=== PATIENT | male | born 1990 | race Hispanic/Latino ===

== ENCOUNTER 2017-10-31 12:29 | Emergency (ER) | payer OTHER ==
--- NOTE | 2017-10-31 13:07 | Emergency Department Report ---
ED Rash HPI - HPI Chief Complaint: Skin Rash Stated Complaint: RASH Time Seen by Provider: 10/31/17 13:06 Duration: 1 week Location: Chest, Upper Extremities, Other (face) Suspected Cause: Plant Rash Symptoms: Yes Itching (generalized), Yes Blistering (red rash ), No Facial Swelling, No Tongue/Oral Swelling, No Breathing Difficulties, No Choking Sensation, No Wheezing/Dyspnea, No Peeling, No Fever, No Lightheaded, No Malaise , No Myalgias Severity: moderate Other History: Patient reports that he has been doing yard work and has developed a rash in his arms face and abdomen, chest vessel to worsen over the last 3 days. He said first started on his right upper arm and now it is spreading. He states that he is using calamine lotion but it is not helping. Denies any respiratory involvement. Itching is 8 out of 10. Denies any pain. Immunizations up-to-date. Nothing makes itching better and nothing makes it worse ED Review of Systems ROS: Stated complaint: RASH Other details as noted in HPI Constitutional: denies: chills, fever Eyes: denies: eye pain, eye discharge, vision change ENT: denies: ear pain, throat pain, congestion Respiratory: denies: cough, shortness of breath, SOB with exertion, SOB at rest , stridor, wheezing Cardiovascular: denies: chest pain, palpitations, edema, syncope Gastrointestinal: denies: abdominal pain, nausea, vomiting, diarrhea Genitourinary: denies: urgency, dysuria Musculoskeletal: denies: back pain, joint swelling, arthralgia, myalgia Skin: pruritus. denies: rash Neurological: denies: headache ED Past Medical Hx - Past Medical History Previous Medical History?: Yes Hx Psychiatric Treatment: Yes (bipolar, schizophrenia, dperession, anxiety) - Surgical History Past Surgical History?: Yes Additional Surgical History: t&a - Family History Family history: hypertension - Social History Smoking Status: Current Every Day Smoker Substance Use Type: Alcohol, Prescribed - Medications Home Medications: Home Medications Medication Instructions Recorded Confirmed Last Taken Type Prednisone [predniSONE 10 mg 10 mg PO .TAPER 6 Days #1 tab.ds.pk 10/31/17 Unknown Rx (6-Day Pack, 21 Tabs)] hydrOXYzine HCL [Atarax] 25 mg PO Q6HR PRN #12 tablet 10/31/17 Unknown Rx Rash Exam - Exam General: Vital signs noted. No distress. Alert and acting appropriately. This is a 27-year-old male well-nourished well-developed in no acute distress HEENT: No Periorbital Edema, No Conjuctival Injection, No Chemosis, No Perioral Edema, No Tongue Edema, No Uvular Edema, No Compromised Airway, No Drooling Lungs: Yes Good Air Exchange, No Wheezes, No Ronchi, No Stridor, No Cough, No Labored Respirations, No Retractions, No Use of Accessory Muscles, No Other Abnormal Lung Sounds Heart: Yes Regular (S1, S2. Regular rate and rhythm), No Murmur Front/Back of Body, Lg (Color): 1 - Excoriated, vesicular, blisters, raised, erythema areas noted to the forearm and arm. 2 - Excoriated areas to forearm and arm, red, erythema, raised scattered sparsely to left arm and forearm 3 - Areas sparsely scattered to chest. 4 - areas scattered to upper back with erythema, excoriated, raised Skin: Yes Excoriations (bilateral upper extremity, anterior chest and upper back ), Yes Weeping, Yes Erythema ( bilateral upper extremity, anterior chest, upper back), Yes Other (erythema, raised area, crusting, scaly and with some blistering and weeping to upper extremities, sparsely scattered to back, chest bilaterally), No Tenderness, No Edema, No Encrustations Other: Positive: Abdomen Normal (nontender to palpate in all quadrants and normal bowel sounds), Neurologic Normal (alert and oriented 3, normal gait), Musculoskeletal Normal (no clubbing, cyanosis or edema. Positive pulses all extremities) ED Course Vital Signs 10/31/17 12:37 Temperature 98.8 F Pulse Rate 69 Respiratory 20 Rate Blood Pressure 127/76 O2 Sat by Pulse 99 Oximetry - Reevaluation(s) Reevaluation #1: 10/31/17 14:37 She given Benadryl 50 mg IM and Solu-Medrol 125 mg IV which relieved itching. ED Medical Decision Making - Medical Decision Making ED course: Diagnosis 1: Contact dermatitis probably from poison sqiohy-Bwds-Iaevma 125 mg IM and Benadryl 50 mg IM for relief of itching. To: Pruritus Will discharge home with steroids and Atarax Patient educated on poison plan., Medication, follow-up plans. Referral to supervisor loading The signs are stable and afebrile Condition discharged home with prescription for Atarax and prednisone Dosepak Critical care attestation.: If time is entered above; I have spent that time in minutes in the direct care of this critically ill patient, excluding procedure time. ED Disposition Clinical Impression: Pruritic disorder Contact dermatitis Qualifiers: Contact dermatitis type: unspecified Contact dermatitis trigger: non-food plants Qualified Code(s): L25.5 - Unspecified contact dermatitis due to plants, except food Disposition: DC-01 TO HOME OR SELFCARE Is pt being admited?: No Does the pt Need Aspirin: No Condition: Stable Instructions: Acute Rash (ED), Itchy Skin (ED) Additional Instructions: Please follow up with supervisor loading as instructed Medication as instructed Avoid offending agent Keep affected area clean and dry Prescriptions: hydrOXYzine HCL [Atarax] 25 mg PO Q6HR PRN #12 tablet PRN Reason: Itching Prednisone [predniSONE 10 mg (6-Day Pack, 21 Tabs)] 10 mg PO .TAPER 6 Days #1 tab.ds.pk Referrals: CLAYTON OCHOA MD [Staff Physician] - 2-3 Days PRIMARY CARE, [Primary Care Provider] - 2-3 Days Forms: Work/School Release Form(ED)
[2017-10-31] MEDS ORDERED: BENADRYL IM ONE (13:34)
[2017-10-31 14:55] VITALS: BP 126/70
== END 2017-10-31 14:56 | disposition home or self-care (01) ==
LOC: ED 12:29
DX: L25.5 Unspecified contact dermatitis due to plants, except food (principal); L29.9 Pruritus, unspecified; F17.200 Nicotine dependence, unspecified, uncomplicated
CPT/HCPCS: 96372; 99282; J1200; J2930

== ENCOUNTER 2017-11-05 20:57 | Emergency (ER) | payer SELFPAY ==
[2017-11-05 21:50] LABS: Amphetamine Screen,Urine PRESUMPTIVE NEGATIVE; Benzodiazepines Screen,Urine PRESUMPTIVE NEGATIVE; Cocaine Screen,Urine PRESUMPTIVE NEGATIVE; Methadone Screen,Urine PRESUMPTIVE NEGATIVE; Opiate Screen,Urine PRESUMPTIVE NEGATIVE
[2017-11-05 21:59] LABS: Bilirubin,Urine NEG (Negative); Blood,Urine NEG (Negative); Color,Urine Yellow (Yellow); Mucus,Urine FEW /HPF; Protein,Urine <15 mg/dL mg/dL (Negative); Urobilinogen,Urine < 2.0 mg/dL (<2.0)
[2017-11-05 22:07] LABS: Cannabinoid Screen,Urine PRESUMPTIVE POSITIVE
[2017-11-05 22:30] LABS: Basophils % (Auto) 0.2 % (0.0-1.8); Eosinophils # (Auto) 0.1 K/mm3 (0.0-0.4); Eosinophils % (Auto) 0.8 % (0.0-4.3); Hematocrit 46.9 % (35.5-45.6); Hemoglobin 16.4 gm/dl (11.8-15.2); Lymphocytes # (Auto) 3.3 K/mm3 (1.2-5.4); Lymphocytes % (Auto) 26.3 % (13.4-35.0); Mean Corpuscular HGB Conc 35 % (32-34); Mean Corpuscular Hemoglobin 32 pg (28-32); Mean Corpuscular Volume 92 fl (84-94); Monocytes # (Auto) 1.3 K/mm3 (0.0-0.8); Monocytes % (Auto) 10.3 % (0.0-7.3); Platelet Count 294 K/mm3 (140-440); Red Cell Distribution Width 13.7 % (13.2-15.2)
[2017-11-05 22:42] LABS: BUN/Creatinine Ratio 23; Blood Urea Nitrogen 18 mg/dL (9-20); Calcium 9.3 mg/dL (8.4-10.2); Hemolysis Index 11
[2017-11-06] MEDS ORDERED: VISTARIL PO ONE (00:23)
--- NOTE | 2017-11-06 01:50 | Emergency Department Report ---
ED Psych HPI - General Chief Complaint: Psych Stated Complaint: DETOX Time Seen by Provider: 11/06/17 00:05 Source: patient Mode of arrival: Ambulatory Limitations: Other - History of Present Illness Initial Comments: 27-year-old male with a history of bipolar disorder (denies schizophrenia) presented to the hospital complaining requesting detox from drugs. Patient abuses benzodiazepines, mildly, and methamphetamine. On average he takes 10 mg of benzodiazepines a day with last use of Ativan at 5 AM yesterday morning. Patient states he has not slept in 3 days and his mind is racing. He is intermittently complaint with his Wellbutrin but has taken it daily for the last 3 days. He expressed to triage that he was suicidal without plan but he repeatedly tells me that he is not suicidal nor homicidal. No pain reported, nausea, vomiting, or diarrhea reported. He is currently requested medication for sleep. Patient denies daily alcohol use. - Related Data Previous Rx's Medication Instructions Recorded Last Taken Type Prednisone [predniSONE 10 mg 10 mg PO .TAPER 6 Days #1 tab.ds.pk 10/31/17 Unknown Rx (6-Day Pack, 21 Tabs)] hydrOXYzine HCL [Atarax] 25 mg PO Q6HR PRN #12 tablet 10/31/17 Unknown Rx Allergies Allergy/AdvReac Type Severity Reaction Status Date / Time haloperidol [From Haldol] Allergy Unknown Verified 09/17/15 10:03 haloperidol lactate Allergy Unknown Verified 09/17/15 10:03 [From Haldol] ED Review of Systems ROS: Stated complaint: DETOX Other details as noted in HPI Comment: All other systems reviewed and negative ED Past Medical Hx - Past Medical History Hx Psychiatric Treatment: Yes (bipolar, schizophrenia, dperession, anxiety) - Surgical History Additional Surgical History: t&a - Social History Smoking Status: Current Every Day Smoker Substance Use Type: Cocaine, Heroin, Prescribed, Methamphetamines, Other - Medications Home Medications: Home Medications Medication Instructions Recorded Confirmed Last Taken Type Prednisone [predniSONE 10 mg 10 mg PO .TAPER 6 Days #1 tab.ds.pk 10/31/17 Unknown Rx (6-Day Pack, 21 Tabs)] hydrOXYzine HCL [Atarax] 25 mg PO Q6HR PRN #12 tablet 10/31/17 Unknown Rx ED Physical Exam - General Limitations: No Limitations - Other Other exam information: General: No limitations Head exam: Atraumatic, normocephalic Eyes exam: Normal appearance ENT: Moist mucous membrane, normal oropharynx Neck exam: Normal inspection, full range of motion, no meningismus nontender Respiratory exam: Clear to auscultation bilateral, no wheezes, rales, crackles Cardiovascular: Normal rate and rhythm Abdomen: Soft, nondistended, and nontender, with normal bowel sounds, no rebound, or guarding Extremity: Full range of motion normal inspection no deformity Back: Normal Inspection, full range of motion, no tenderness Neurologic: Alert, oriented x3, cranial nerves intact, no motor or sensory deficit Psychiatric: normal affect Skin: Warm, dry, intact ED Course Vital Signs 11/05/17 11/05/17 11/05/17 21:06 21:15 23:43 Temperature 98.4 F 98.4 F Pulse Rate 93 H 93 H Respiratory 18 18 18 Rate Blood Pressure 141/90 141/90 Blood Pressure [Right] O2 Sat by Pulse 97 99 100 Oximetry 11/06/17 11/06/17 11/06/17 00:06 03:00 04:00 Temperature 98.6 F Pulse Rate 78 71 70 Respiratory 18 11 L 12 Rate Blood Pressure 124/68 116/69 Blood Pressure 134/86 [Right] O2 Sat by Pulse 100 Oximetry 11/06/17 11/06/17 11/06/17 04:16 04:30 05:00 Temperature Pulse Rate 71 92 H 69 Respiratory 10 L 17 11 L Rate Blood Pressure 116/69 116/69 124/64 Blood Pressure [Right] O2 Sat by Pulse Oximetry 11/06/17 11/06/17 11/06/17 06:00 07:29 11:14 Temperature Pulse Rate 75 70 Respiratory 14 18 Rate Blood Pressure 120/55 131/84 Blood Pressure 131/84 [Right] O2 Sat by Pulse 84 Oximetry - Reevaluation(s) Reevaluation #1: 11/06/17 01:49 see [facility] ED Medical Decision Making - Lab Data Result diagrams: 11/05/17 22:10 11/05/17 22:10 Lab Results 11/05/17 11/05/17 11/05/17 Range/Units 21:24 21:24 22:10 WBC (4.5-11.0) K/mm3 RBC (3.65-5.03) M/mm3 Hgb (11.8-15.2) gm/dl Hct (35.5-45.6) % MCV (84-94) fl MCH (28-32) pg MCHC (32-34) % RDW (13.2-15.2) % Plt Count (140-440) K/mm3 Lymph % (Auto) (13.4-35.0) % [place] % (Auto) (0.0-7.3) % Eos % (Auto) (0.0-4.3) % Baso % (Auto) (0.0-1.8) % Lymph # (1.2-5.4) K/mm3 [place] # (0.0-0.8) K/mm3 Eos # (0.0-0.4) K/mm3 Baso # (0.0-0.1) K/mm3 Seg Neutrophils % (40.0-70.0) % Seg Neutrophils # (1.8-7.7) K/mm3 Sodium (137-145) mmol/L Potassium (3.6-5.0) mmol/L Chloride (98-107) mmol/L Carbon Dioxide (22-30) mmol/L Anion Gap mmol/L BUN (9-20) mg/dL Creatinine (0.8-1.5) mg/dL Estimated GFR ml/min BUN/Creatinine Ratio % Glucose (75-100) mg/dL Calcium (8.4-10.2) mg/dL Urine Color Yellow (Yellow) Urine Turbidity Clear (Clear) Urine pH 5.0 (5.0-7.0) Ur Specific [place] 1.024 (1.003-1.030) Urine Protein <15 mg/dl (Negative) mg/dL Urine Glucose (UA) Neg (Negative) mg/dL Urine Ketones Neg (Negative) mg/dL Urine Blood Neg (Negative) Urine Nitrite Neg (Negative) Urine Bilirubin Neg (Negative) Urine Urobilinogen < 2.0 (<2.0) mg/dL Ur Leukocyte Esterase Neg (Negative) Urine WBC (Auto) 0.0 (0.0-6.0) /HPF Urine RBC (Auto) 2.0 (0.0-6.0) /HPF Urine Mucus Few /HPF Salicylates < 0.3 L (2.8-20.0) mg/dL Urine Opiates Screen Presumptive negative Urine Methadone Screen Presumptive negative Acetaminophen (10.0-30.0) ug/mL Ur Barbiturates Screen Presumptive negative Ur Phencyclidine Scrn Presumptive negative Ur Amphetamines Screen Presumptive negative U Benzodiazepines Scrn Presumptive negative Urine Cocaine Screen Presumptive negative U Marijuana (THC) Screen Presumptive positive Drugs of Abuse Note Disclamer Plasma/Serum Alcohol (0-0.07) % 11/05/17 11/05/17 11/05/17 Range/Units 22:10 22:10 22:10 WBC (4.5-11.0) K/mm3 RBC (3.65-5.03) M/mm3 Hgb (11.8-15.2) gm/dl Hct (35.5-45.6) % MCV (84-94) fl MCH (28-32) pg MCHC (32-34) % RDW (13.2-15.2) % Plt Count (140-440) K/mm3 Lymph % (Auto) (13.4-35.0) % [place] % (Auto) (0.0-7.3) % Eos % (Auto) (0.0-4.3) % Baso % (Auto) (0.0-1.8) % Lymph # (1.2-5.4) K/mm3 [place] # (0.0-0.8) K/mm3 Eos # (0.0-0.4) K/mm3 Baso # (0.0-0.1) K/mm3 Seg Neutrophils % (40.0-70.0) % Seg Neutrophils # (1.8-7.7) K/mm3 Sodium 138 (137-145) mmol/L Potassium 4.3 (3.6-5.0) mmol/L Chloride 100.9 (98-107) mmol/L Carbon Dioxide 25 (22-30) mmol/L Anion Gap 16 mmol/L BUN 18 (9-20) mg/dL Creatinine 0.8 (0.8-1.5) mg/dL Estimated GFR > 60 ml/min BUN/Creatinine Ratio 23 % Glucose 83 (75-100) mg/dL Calcium 9.3 (8.4-10.2) mg/dL Urine Color (Yellow) Urine Turbidity (Clear) Urine pH (5.0-7.0) Ur Specific [place] (1.003-1.030) Urine Protein (Negative) mg/dL Urine Glucose (UA) (Negative) mg/dL Urine Ketones (Negative) mg/dL Urine Blood (Negative) Urine Nitrite (Negative) Urine Bilirubin (Negative) Urine Urobilinogen (<2.0) mg/dL Ur Leukocyte Esterase (Negative) Urine WBC (Auto) (0.0-6.0) /HPF Urine RBC (Auto) (0.0-6.0) /HPF Urine Mucus /HPF Salicylates (2.8-20.0) mg/dL Urine Opiates Screen Urine Methadone Screen Acetaminophen < 5.0 L (10.0-30.0) ug/mL Ur Barbiturates Screen Ur Phencyclidine Scrn Ur Amphetamines Screen U Benzodiazepines Scrn Urine Cocaine Screen U Marijuana (THC) Screen Drugs of Abuse Note Plasma/Serum Alcohol < 0.01 (0-0.07) % 11/05/17 Range/Units 22:10 WBC 12.4 H (4.5-11.0) K/mm3 RBC 5.10 H (3.65-5.03) M/mm3 Hgb 16.4 H (11.8-15.2) gm/dl Hct 46.9 H (35.5-45.6) % MCV 92 (84-94) fl MCH 32 (28-32) pg MCHC 35 H (32-34) % RDW 13.7 (13.2-15.2) % Plt Count 294 (140-440) K/mm3 Lymph % (Auto) 26.3 (13.4-35.0) % [place] % (Auto) 10.3 H (0.0-7.3) % Eos % (Auto) 0.8 (0.0-4.3) % Baso % (Auto) 0.2 (0.0-1.8) % Lymph # 3.3 (1.2-5.4) K/mm3 [place] # 1.3 H (0.0-0.8) K/mm3 Eos # 0.1 (0.0-0.4) K/mm3 Baso # 0.0 (0.0-0.1) K/mm3 Seg Neutrophils % 62.4 (40.0-70.0) % Seg Neutrophils # 7.7 (1.8-7.7) K/mm3 Sodium (137-145) mmol/L Potassium (3.6-5.0) mmol/L Chloride (98-107) mmol/L Carbon Dioxide (22-30) mmol/L Anion Gap mmol/L BUN (9-20) mg/dL Creatinine (0.8-1.5) mg/dL Estimated GFR ml/min BUN/Creatinine Ratio % Glucose (75-100) mg/dL Calcium (8.4-10.2) mg/dL Urine Color (Yellow) Urine Turbidity (Clear) Urine pH (5.0-7.0) Ur Specific [place] (1.003-1.030) Urine Protein (Negative) mg/dL Urine Glucose (UA) (Negative) mg/dL Urine Ketones (Negative) mg/dL Urine Blood (Negative) Urine Nitrite (Negative) Urine Bilirubin (Negative) Urine Urobilinogen (<2.0) mg/dL Ur Leukocyte Esterase (Negative) Urine WBC (Auto) (0.0-6.0) /HPF Urine RBC (Auto) (0.0-6.0) /HPF Urine Mucus /HPF Salicylates (2.8-20.0) mg/dL Urine Opiates Screen Urine Methadone Screen Acetaminophen (10.0-30.0) ug/mL Ur Barbiturates Screen Ur Phencyclidine Scrn Ur Amphetamines Screen U Benzodiazepines Scrn Urine Cocaine Screen U Marijuana (THC) Screen Drugs of Abuse Note Plasma/Serum Alcohol (0-0.07) % - Medical Decision Making Patient requests help with polysubstance abuse. UDS is only positive for marijuana despite patient stating he's abusing benzodiazepines, Bobbi, and methamphetamines. Patient is medically cleared. Awaiting mental health evaluation. Vistaril provided to help with sleep tonight. At this time in 1013 has not been signed this patient denies suicidal ideation. I do feel that patient will benefit from psychiatric evaluation for possible medication adjustment and determination if he qualifies for inpatient versus outpatient substance abuse treatment. His current dose of Wellbutrin will be continued. pt will be s/o to overnight MD Dr Harvey. - Differential Diagnosis bipolar/manic episode, substance abuse, depression, suicidal Critical Care Time: No Critical care attestation.: If time is entered above; I have spent that time in minutes in the direct care of this critically ill patient, excluding procedure time. ED Disposition Clinical Impression: Bipolar disorder, Benzodiazepine abuse, Methamphetamine abuse, Medical clearance for psychiatric admission Disposition: DC/TX-65 PSY HOSP/PSY UNIT Is pt being admited?: No Condition: Stable Time of Disposition: 01:54 (Pending psychiatric evaluation)
[2017-11-06 08:32] VITALS: BP 131/84
[2017-11-06] MEDS ORDERED: WELLBUTRIN PO SCH (10:00)
--- NOTE | 2017-11-06 13:26 | Consultation ---
History of Present Illness - Reason for Consult Consult date: 11/06/17 Reason for consult: Mental Health Evaluation Requesting physician: ELMER REYES - Chief Complaint Chief complaint: "I need a PPD test" - History of Present Psychiatric Illness 27 y.o. white male presenting to the ER for drug detox. Today the patient is calm and cooperative during the assessment. He stated that he need a PPD test to enter [facility]. He stated going to [facility] for the PPD and they did not administer the test because his skin was infected with "poison mateo", so he decided to come to the ER. He stated that he "hoped" that the the ER would administer the test. He stated a long hx of substance abuse and depression. He stated that he takes Wellbutrin for depression. He denies SI/ HI's and AVH's. He denies any manic episodes in the past. He denies alcohol consumption (etoh). He stated doing "alicia" and taking benzos, but the patient' s UDS was positive for marijuana. Medications and Allergies Allergies Allergy/AdvReac Type Severity Reaction Status Date / Time haloperidol [From Haldol] Allergy Unknown Verified 09/17/15 10:03 haloperidol lactate Allergy Unknown Verified 09/17/15 10:03 [From Haldol] Home Medications Medication Instructions Recorded Confirmed Last Taken Type Prednisone [predniSONE 10 mg 10 mg PO .TAPER 6 Days #1 tab.ds.pk 10/31/17 Unknown Rx (6-Day Pack, 21 Tabs)] hydrOXYzine HCL [Atarax] 25 mg PO Q6HR PRN #12 tablet 10/31/17 Unknown Rx Past psychiatric history - Past Medical History Past Medical History: No medical history Past Surgical History: No surgical history - past Psychiatric treatment and history Psych: Depression psychiatric treatment history: Hx of substance abuse and depression. He denies a fam psy hx. - Social History Social history: lives with family Mental Status Exam - Vital signs Last Vital Signs Temp 98.6 F 11/06/17 00:06 Pulse 70 11/06/17 11:14 Resp 18 11/06/17 11:14 BP 131/84 11/06/17 11:14 Pulse Ox 84 11/06/17 11:14 - Exam Narrative exam: MSE: Appearance: calm, cooperative Behavior: regular eye contact Speech: regular rate and tone Mood: "okay" Affect: congruent to mood Thought Process: linear Thought Content: denies SI/HI's and AVH's Motor Activity: lying in bed Cognition: A/O x 3 Insight: appropriate Judgment: appropriate Results Result Diagrams: 11/05/17 22:10 11/05/17 22:10 Abnormal lab results 11/05/17 11/05/17 11/05/17 Range/Units 22:10 22:10 22:10 WBC 12.4 H (4.5-11.0) K/mm3 RBC 5.10 H (3.65-5.03) M/mm3 Hgb 16.4 H (11.8-15.2) gm/dl Hct 46.9 H (35.5-45.6) % MCHC 35 H (32-34) % [place] % (Auto) 10.3 H (0.0-7.3) % [place] # 1.3 H (0.0-0.8) K/mm3 Salicylates < 0.3 L (2.8-20.0) mg/dL Acetaminophen < 5.0 L (10.0-30.0) ug/mL All other labs normal. Assessment and Plan Assessment and plan: Impression: Hx of Depression/Substance Abuse. Cannabis Use DO. Today the patient is calm and cooperative during the assessment. No acute withdrawals noted (benzos). Recommendation/Plan: The patient can follow up with [facility] for outpatient psy/rehab services. Per the patient, he does not need a prescription for Wellbutrin. Discussed possible suicidality/medication induced vikas with patient reference Wellbutrin.
== END 2017-11-06 11:18 ==
LOC: ED 20:57
DX: F32.9 Major depressive disorder, single episode, unspecified (principal); F20.9 Schizophrenia, unspecified; F19.10 Other psychoactive substance abuse, uncomplicated; F12.10 Cannabis abuse, uncomplicated; F15.10 Other stimulant abuse, uncomplicated; F41.9 Anxiety disorder, unspecified; F17.200 Nicotine dependence, unspecified, uncomplicated; F14.10 Cocaine abuse, uncomplicated; F11.10 Opioid abuse, uncomplicated; Z88.8 Allergy status to other drugs, medicaments and biological substances; Z79.899 Other long term (current) drug therapy
CPT/HCPCS: 36415; 80048; 80307; 81001; 85025; 99285; G0480; 80320; Q0177